=== PATIENT | male | born 1965 | race African-American/Black ===

== ENCOUNTER 2016-10-30 20:17 | Emergency (ER) | payer OTHER ==
[~2016-10-30] VITALS: Ht 165.1 cm; Wt 70.0 kg
[~2016-10-30 20:17] MED LIST: DIAZ2TAB PO; MOTRIN PO; VIAG50 PO
[2016-10-30 23:45] VITALS: BP 118/63
[2016-10-31] MEDS ORDERED: METHYLPREDNISOLONE SOD SUCC 125 MG/2 ML VIAL IM ONE
[2016-10-31] MEDS ORDERED: ONDANSETRON 4MG ODT PO ONE
== END 2016-10-31 00:15 | disposition home or self-care (01) ==
LOC: ER 20:17
DX: R13.10 Dysphagia, unspecified (principal); F12.10 Cannabis abuse, uncomplicated
CPT/HCPCS: 99282; J2930; Q0162; Z7610

== ENCOUNTER 2016-11-14 23:00 | Emergency (ER) | payer OTHER ==
[~2016-11-14] VITALS: Ht 165.1 cm; Wt 69.0 kg
[2016-11-15 02:27] VITALS: BP 115/77
== END 2016-11-15 03:13 | disposition home or self-care (01) ==
LOC: ER 23:00
DX: R13.10 Dysphagia, unspecified (principal); J44.9 Chronic obstructive pulmonary disease, unspecified
CPT/HCPCS: 99283

== ENCOUNTER 2017-11-09 16:12 | Emergency (ER) | payer OTHER ==
[~2017-11-09] VITALS: Ht 165.1 cm; Wt 69.0 kg
[2017-11-09] MEDS ORDERED: ONDANSETRON 4MG ODT PO ONE (16:45)
[2017-11-09 17:02] LABS: EOSINOPHILS % 1.3 % (0.0-5.0); HEMATOCRIT. 42.9 % (42.0-52.0); HEMOGLOBIN. 14.5 g/dL (14.0-18.0); MEAN CORPUSCULAR HEMOGLOBIN 29.5 pg (28.0-32.0); MEAN CORPUSCULAR VOLUME 87.2 fL (80.0-94.0); MEAN PLATELET VOLUME 7.1 fl (7.4-10.4); MONOCYTES % 11.8 % (2.0-8.0); NEUTROPHILS % 46.9 % (40.0-76.0); PLATELET 326 x1000/uL (130-400); RED BLOOD CELL COUNT 4.92 mill/uL (4.7-6.1); RED CELL DISTRIBUTION WIDTH 13.3 % (11.6-14.6)
[2017-11-09 17:07] VITALS: BP 132/88
[2017-11-09 17:08] LABS: CHLORIDE 101 mEq/L (98-107)
[2017-11-09 17:12] LABS: ETHANOL BLOOD < 10 mg/dL
[2017-11-09] MEDS ORDERED: SODIUM CHLORIDE 0.9% 1,000 ML IV ONE (17:15)
[2017-11-09] MEDS ORDERED: ONDANSETRON HCL 4MG/2ML VIAL IV ONE (17:15)
[2017-11-09 17:21] LABS: CLARITY URINE CLEAR (CLEAR); COLOR URINE YELLOW (YELLOW); KETONES URINE TRACE (NEGATIVE); LEUKOCYTE ESTERASE URINE NEGATIVE (NEGATIVE); NITRITE URINE NEGATIVE (NEGATIVE); OCCULT BLOOD URINE NEGATIVE (NEGATIVE); PROTEIN URINE NEGATIVE (NEGATIVE); SPECIFIC GRAVITY URINE 1.027 (1.005-1.030)
[2017-11-09 17:39] LABS: *AMPHETAMINES SCREEN URINE NEGATIVE (NEGATIVE); *BARBITURATES SCREEN URINE NEGATIVE (NEGATIVE); *BENZODIAZEPINES SCREEN URINE NEGATIVE (NEGATIVE); *COCAINE SCREEN URINE NEGATIVE (NEGATIVE); CANNABINOID URINE SCREEN PRESUMTIVE POSITIVE (NEGATIVE); METHADONE URINE SCREEN NEGATIVE (NEGATIVE); OPIATES URINE SCREEN NEGATIVE (NEGATIVE); PHENCYCLIDINE URINE SCREEN NEGATIVE (NEGATIVE)
== END 2017-11-09 18:10 | disposition home or self-care (01) ==
LOC: ER 16:30
DX: T40.7X1A Poisoning by cannabis (derivatives), accidental (unintentional), initial encounter (principal); F41.9 Anxiety disorder, unspecified; J44.9 Chronic obstructive pulmonary disease, unspecified; Y92.018 Other place in single-family (private) house as the place of occurrence of the external cause
CPT/HCPCS: 36415; 80053; 80305; 81003; 85025; 96361; 96374; 99284; G0482; J2405; J7030; Q0162; Z7610